=== PATIENT | female | born 1990 | race Caucasian/White ===

== ENCOUNTER 2017-10-05 12:32 | Emergency (ER) | payer MEDICAID, OTHER ==
[2017-10-05 13:34] VITALS: BP 114/53
--- NOTE | 2017-10-05 14:49 | UC ---
Back Pain HPI - HPI Summary HPI Summary: C/O back spasms since epidural with childbirth 09/19/17. Has C/S with fever and endometritis. Also c/o dental pain with upper teeth. - History of Current Complaint Chief Complaint: UCDentalProblem Stated Complaint: BACK SPASMS, DENTAL/ORAL COMPLAINT Time Seen by Provider: 10/05/17 14:43 Hx Obtained From: Patient Hx Last Menstrual Period: prior to childbirth on 09/18 ?: No Onset/Duration: Sudden Onset, Lasting Weeks - 2, Still Present Timing: Constant - in the teeth., Lasting Minutes - 3 minutes every couple of hours. Character: Throbbing - in the teeth. Gums. Aggravating Factor(s): Movement Alleviating Factor(s): Rest Associated Signs And Symptoms: Negative: Swelling, Redness, Fever - none since taking the antibiotics for the uterine infection., Weakness, Numbness, Tingling , Abdominal Pain, Bladder Incontinence, Bowel Incontinence - Risk Factors AAA Risk Factors: Negative TAD Risk Factors: Negative - Allergies/Home Medications Allergies/Adverse Reactions: Allergies Allergy/AdvReac Type Severity Reaction Status Date / Time Morphine Allergy Intermediate Hives Verified 10/05/17 13:26 Iodinated Contrast Media Allergy Mild Rash Verified 10/05/17 13:26 [IV CONTRAST DYE] Haloperidol [From Haldol] Allergy Unknown Unknown Verified 10/05/17 13:26 Reaction Details Home Medications: Home Medications Ascorbic Acid TAB* [Vitamin C TAB*] 500 mg PO DAILY 10/05/17 [History Confirmed 10/05/17] Ferrous Fumarate [Iron] 18 mg PO DAILY 10/05/17 [History Confirmed 10/05/17] Ibuprofen [Ibuprofen 200 MG] 800 mg PO Q6H PRN 10/05/17 [History Confirmed 10/05] Vitamin [Calna] 1 tab PO DAILY 10/05/17 [History Confirmed 10/05/17] PMH/Surg Hx/FS Hx/Imm Hx Respiratory History: Asthma GI/ History: Kidney Stones Neurological History: Seizures - Surgical History Surgical History: Yes Surgery Procedure, Year, and Place: dialysis when she was 16. appendectomy- states still has it. tonsillectomy - Family History Known Family History: Positive: Diabetes, Seizure Disorder - Social History Lives: With Family Alcohol Use: None Substance Use Type: None Smoking Status (MU): Former Smoker Type: Cigarettes Length of Time of Smoking/Using Tobacco: 1 year Have You Smoked in the Last Year: No When Did the Patient Quit Smoking/Using Tobacco: 2011 - Immunization History Most Recent Influenza Vaccination: February Review of Systems Constitutional: Fatigue ENT: Dental Pain, Ear Ache Musculoskeletal: Myalgia Is Patient Immunocompromised?: No All Other Systems Reviewed And Are Negative: Yes Physical Exam Triage Information Reviewed: Yes Appearance: Well-Appearing, Pain Distress - mild, Obese Vital Signs: Initial Vital Signs Temp 97.3 F 10/05/17 13:29 Pulse 68 10/05/17 13:29 Resp 20 10/05/17 13:29 BP 114/53 10/05/17 13:29 Pulse Ox 96 10/05/17 13:29 Vital Signs Reviewed: Yes Eyes: Positive: Conjunctiva Clear ENT: Positive: Pharynx normal, TMs normal Dental: Positive: Percussion Tenderness @ - multiple upper teeth, Gross Decay/ Caries @ - multiple teeth Neck exam: Normal Respiratory Exam: Normal Cardiovascular Exam: Normal Abdomen Description: Positive: No Organomegaly, Soft, Other: - c/s wound healing well.. Negative: CVA Tenderness (R), CVA Tenderness (L) Bowel Sounds: Positive: Present, Other: - Tenderness to palpation and percussion over lower thoracic, upper lumber spinous processes. No redness/ warmth or swelling. Neurological Exam: Other - Patellar reflex 2+ symmetric, achilles absent bilaterally Neurological: Positive: Other: - Pinprick sensation abnormal left side lower back around T12/ L1 Psychological Exam: Normal Skin Exam: Normal Back Pain Course/Dx - Differential Dx/Diagnosis Differential Diagnosis/HQI/PQRI: Epidural Abscess, Herniated Disc, Renal Colic Provider Diagnoses: Lumbar/ thoracic radiculitis. Dental pain Discharge - Discharge Plan Condition: Stable Disposition: HOME Prescriptions: Naproxen [Naproxen DR 500 MG TAB] 500 mg PO BID PRN #60 tab PRN Reason: Pain (Dental) Penicillin VK 500 MG TAB(NF) [Penicillin VK 500 mg Tab] 500 mg PO QID #40 tab Patient Education Materials: Toothache (ED), Penicillin V (By mouth), Naproxen (By mouth) Referrals: No Primary Care Phys,NOPCP [Primary Care Provider] - 1 Week (You should follow up with a family doctor in the next week to recheck on the nerve injury. ) Additional Instructions: I'm very concerned about the persistent back pain. Most likely a nerve got irritated by the epidural. It should resolve in 4-6 weeks. If you get worsening pain, especially with fevers YOU HAVE TO GO TO THE ER. IF YOU GET WEAKNESS/NUMBNESS/ STOOL OR URINE INCONTINENCE GO TO THE ER.
== END 2017-10-05 15:47 | disposition home or self-care (01) ==
LOC: UCCORT 12:32
DX: M54.16 Radiculopathy, lumbar region (principal); M54.14 Radiculopathy, thoracic region; K08.89 Other specified disorders of teeth and supporting structures; K02.9 Dental caries, unspecified; J45.909 Unspecified asthma, uncomplicated; R56.9 Unspecified convulsions; E66.9 Obesity, unspecified; Z87.442 Personal history of urinary calculi; Z90.89 Acquired absence of other organs; Z88.5 Allergy status to narcotic agent; Z88.8 Allergy status to other drugs, medicaments and biological substances; Z91.041 Radiographic dye allergy status; Z87.891 Personal history of nicotine dependence
CPT/HCPCS: 36415; 85652; 99212; G0463

== ENCOUNTER 2018-01-18 17:12 | Emergency (ER) | payer MEDICAID, OTHER ==
--- OUTSIDE RECORDS SUMMARY | 2018-01-18 17:52 | XMS REPORT ---
:1990 External Reference #:[id number] Author Organization [facility] Address [address], [address] [place] [address] Phone [phone] Care Team Providers Name Role Phone Ford Galaviz M.D., [facility] Care Team Information Disability Manager Unavailable Payers Type Date Identification Numbers Payment Provider Subscriber Commercial Policy Number: [id number] [facility] Sheela Ahumada PayID: [id number] [address] [place] [address] Medicaid Policy Number: [id number] Medicaid Sheela Ahumada Group Name: 1 1 [address] PayID: [id number] [place] [address] Problems Date Description Provider Status Onset: 12/23/2017 Kidney stone Karel Valdivia M.D. Active Family History Date Family Member(s) Problem(s) Comments Mother due to bone cancer () Social History Type Date Description Comments Lives With Alone ETOH Use Denies alcohol use Smoking Patient denies history of smoking Recreational Drug Use Former Drug User weed and meth Daily Caffeine Consumes on average 2 sodas per day Allergies, Adverse Reactions, Alerts Date Description Reaction Status Severity Comments 12/23/2017 Morphine Nausea and Vomiting active 12/23/2017 Contrast Dye hives active Medications Medication Date Status Form Strength Qnty SIG Indications Ordering Provider Zoloft Active Tablets 50mg 1 po qd Unknown Vital Signs Date Vital Result Comment 12/23/2017 BP Systolic 106 mmHg BP Diastolic 75 mmHg Body Temperature 96.3 F Heart Rate 75 /min Respiratory Rate 16 /min Height 64 inches 5'4" Weight 244.00 lb BMI (Body Mass Index) 41.9 kg/m2 BSA (Body Surface Area) 2.13 m2 [place] body weight in kilograms 54 Last Menstrual Period [id number] O2 % BldC Oximetry 95 % Pain Level 5 right low back Results Test Date Test Result H/L Range Note Laboratory test 04/25/2010 HCG, Quant < 1.0 mIU/mL 1 finding Drugs Of Abuse-Urine 04/25/2010 Amphetamines (Urine) NEGATIVE Screen 7 Barbiturates (Urine) NEGATIVE Benzodiazepines (Urine) NEGATIVE Cannabinoids (Urine) NEGATIVE Cocaine Metabolite (Urine) NEGATIVE Methadone (Urine) NEGATIVE Opiates (Urine) NEGATIVE Urine Cutoffs * 2 Laboratory test finding 04/25/2010 Urine Screen See Note 3 Urinalysis With Microscopic 04/25/2010 Urine Color YELLOW Yellow Urine Clarity SL CLOUDY Clear Urine Glucose - Dipstick NEGATIVE mg/dL Negative Urine Bilirubin - Dipstick NEGATIVE Negative Urine Ketone NEGATIVE mg/dL Negative Urine Specific [place] 1.020 1.010-1.030 Urine Blood SMALL High Negative Urine PH 7.0 6.5-7.5 Urine Protein - Dipstick NEGATIVE mg/dL Negative Urine Urobilinogen - Dipstick 0.2 E.U./dL 0.2-1.0 Urine Nitrite - Dipstick NEGATIVE Negative Urine Leuk Esterase SMALL High Negative Urine RBC 0-2 rbc/hpf 0-7 Urine WBC 0-2 wbc/hpf 0-7 Urine Epithelial Cells FEW NONESEEN Urine Bacteria MODERATE NONESEEN High Urine Mucus SMALL NONESEEN Urine Amorph Sediment MODERATE Negative Laboratory test finding 04/25/2010 Culture If Indicated Comment See Note 4 Urine Culture See Note 5 1 APPROXIMATE GESTATIONAL AGE AND BHCG RANGE 0-1 WEEK.......................1-50 mIU/mL 1-2 WEEKS....................40-300 mIU/mL 2-3 WEEKS.................100-1,000 mIU/mL 3-4 WEEKS.................500-6,000 mIU/mL 1-2 MONTHS............5,000-200,000 mIU/mL 2-3 MONTHS...........10,000-100,000 mIU/mL 2nd TRIMESTER..........3,000-50,000 mIU/mL 3rd TRIMESTER..........1,000-50,000 mIU/mL 2 *THE SUBMITTED URINE SPECIMEN WAS SCREENED AT THE LISTED [facility] INITIAL TEST LEVEL Amphetamines 1000 ng/mL Barbiturates 200 ng/mL Benzodiazepines 200 ng/mL Cannabinoids 50 ng/mL Cocaine Metabolite 300 ng/mL Methadone 300 ng/mL Opiates 300 ng/mL 3 04/25/10 LAB.LMT Deleted by Reflex Group UACOM 4 CULTURE TO FOLLOW 5 COLONY COUNT ! 30,000-40,000 CFU/ml Organism 1 ! ESCHERICHIA COLI QUANTITY ! FEW Organism 2 ! URETHRAL ANIKA ESCHERICHIA COLI Target Route Dose M.I.C. RX AB COST ------ ----- -------- ------ -- ------ NITROFURANTOIN <=16 S TRIMETHOPRIM/SULFAMETHOXAZOLE <=20 S AMPICILLIN >=32 R CEFAZOLIN <=4 S AMPICILLIN/SULBACTAM 16 I CIPROFLOXACIN <=0.25 S PIPERACILLIN/TAZOBACTAM <=4 S CEFTAZIDIME <=1 S CEFTRIAXONE <=1 S CEFEPIME <=1 S LEVOFLOXACIN <=0.12 S IMIPENEM <=1 S GENTAMICIN <=1 S TOBRAMYCIN <=1 S CEFOXITIN <=4 S Procedures Date CPT Code Description Status 10/09/2010 01333 Pressurized/Non-Pressurized Inhalation Treatment,Acute Completed Obstructio Encounters Type Date Location Provider CPT E/M Dx Office Visit 12/23/2017 1:15p Urology Karel Valdivia M.D. [id number] N20.0 Plan of Care Future Appointment(s):02/23/2018 1:15 pm - Karel Valdivia M.D. at [id number] - Karel Valdivia M.D.N20.0 Calculus of kidneyComments:Patient is a 27- year-old female with second episode of kidney stone. I do not think her current painis due to the kidney stone as there is no hydronephrosis or evidence of obstruction. The patient however will need a workup given her age, she is agreeable to 24-hour urine collection for further evaluation. I will see her back in 2-3 months with urine studies.
[2018-01-18 18:16] VITALS: BP 112/70
[2018-01-18] MEDS ORDERED: Phenazopyridine TAB* 100 MG PO ONE (19:26)
[2018-01-18] MEDS ORDERED: Ciprofloxacin TAB* 500 MG PO ONE (19:26)
--- NOTE | 2018-01-18 22:59 | UC ---
UC General HPI - HPI Summary HPI Summary: 27 yo female c/o freq / urg / dyuria x 1-2 days. No fever / chills. No abd pain. No back pain. Does have hx kidney stones, but doesn't feel like kidney stones. No rash. Hx uti, most recently during (delivered Aug 2017). - History of Current Complaint Chief Complaint: UCGU Stated Complaint: POSSIBLE UTI Time Seen by Provider: 01/18/18 18:49 Hx Obtained From: Patient Hx Last Menstrual Period: prior to childbirth on 09/18 Pain Intensity: 7 - Allergy/Home Medications Allergies/Adverse Reactions: Allergies Allergy/AdvReac Type Severity Reaction Status Date / Time haloperidol [From Haldol] Allergy Unknown Verified 01/18/18 18:16 Reaction Details Iodinated Contrast- Oral and Allergy Hives Verified 01/18/18 18:16 IV Dye morphine Allergy Rash Verified 01/18/18 18:16 Home Medications: Home Medications Vit37/Iron/Folic Acid [Prenata] 1 chw PO DAILY 01/18/18 [History Confirmed 01/18/18] PMH/Surg Hx/FS Hx/Imm Hx Previously Healthy: Yes - see hpi - Surgical History Surgical History: Yes Surgery Procedure, Year, and Place: dialysis when she was 16. appendectomy- states still has it. tonsillectomy - Family History Known Family History: Positive: Diabetes, Seizure Disorder - Social History Alcohol Use: Occasionally Substance Use Type: None Smoking Status (MU): Former Smoker Type: Cigarettes Length of Time of Smoking/Using Tobacco: 1 year Have You Smoked in the Last Year: No When Did the Patient Quit Smoking/Using Tobacco: 2011 - Immunization History Most Recent Influenza Vaccination: February Review of Systems Constitutional: Negative Skin: Negative Eyes: Negative ENT: Negative Respiratory: Negative Cardiovascular: Negative Gastrointestinal: Negative Genitourinary: Dysuria, Frequency, Urgency Motor: Negative Neurovascular: Negative Musculoskeletal: Negative Neurological: Negative Psychological: Negative Is Patient Immunocompromised?: No All Other Systems Reviewed And Are Negative: Yes Physical Exam Triage Information Reviewed: Yes Appearance: Well-Appearing, Well-Nourished Vital Signs: Initial Vital Signs Temp 97.5 F 01/18/18 18:12 Pulse 73 01/18/18 18:12 Resp 16 01/18/18 18:12 BP 112/70 01/18/18 18:12 Pulse Ox 99 01/18/18 18:12 Vital Signs Reviewed: Yes Eye Exam: Normal - grossly normal ENT Exam: Normal - grossly normal Neck exam: Normal Respiratory Exam: Normal Cardiovascular Exam: Normal Abdominal Exam: Normal - subj lower pelvic discomfort. no cvat no r/g Abdomen Description: Positive: Nontender Musculoskeletal Exam: Normal - moves x 4 ext's ambulates ok Neurological Exam: Normal - grossly nonfocal Psychological Exam: Normal - conversing easily and appropriately Skin Exam: Normal - no visible or reported rash Course/Dx - Course Course Of Treatment: Reviewed urine dip with pt. Reviewed s/sx and coa / tx plan, recommendation for f/u. . Questions as posed answered to the best of my ability. - Differential Dx - Multi-Symptom Provider Diagnoses: UTI Discharge - Sign-Out/Discharge Documenting (check all that apply): Discharge/Admit/Transfer - Discharge Plan Condition: Stable Disposition: HOME Prescriptions: Ciprofloxacin HCl [Cipro 500 MG TAB] 500 mg PO BID #13 tab Phenazopyridine 200 mg (NF) [Pyridium 200 MG tab *] 200 mg PO TID PRN #12 tab PRN Reason: Pain Patient Education Materials: Dehydration (ED), Urinary Tract Infection in Women (DC), Hematuria (ED) Referrals: [facility] [place] PHYSICIAN REFERRAL [Outside] No Primary Care Phys,NOPCP [Primary Care Provider] - Additional Instructions: Drink plenty of fluids (fallon water). Follow up with primary care physician, per routine, if possible in the next 2-3 weeks for urine recheck. Seek medical attention for worse or new problems. - Billing Disposition and Condition Condition: STABLE Disposition: HOME
== END 2018-01-18 19:35 | disposition home or self-care (01) ==
LOC: UCCORT 17:12
DX: N39.0 Urinary tract infection, site not specified (principal); Z32.02 Encounter for pregnancy test, result negative; Z87.891 Personal history of nicotine dependence; Z88.5 Allergy status to narcotic agent; Z88.8 Allergy status to other drugs, medicaments and biological substances; Z91.041 Radiographic dye allergy status
CPT/HCPCS: 81003; 84702; 87086; 99212; A9270-GY; G0463

== ENCOUNTER 2019-01-19 19:18 | Emergency (ER) | payer OTHER ==
[2019-01-19 20:14] VITALS: BP 120/64
--- NOTE | 2019-01-19 20:31 | ED ---
Respiratory - HPI Summary HPI Summary: 28 yr old female with the complaint of runny nose, post nasal drip, sinus pain, coughing. The patient had onset of symptoms four days ago. She has a history of asthma and bronchitis as well. No fever or chills. When the patient coughs she has discomfort in her lower throat and upper chest. No SOB. No pleuritic pain. - History of Current Complaint Chief Complaint: UCRespiratory Stated Complaint: COUGH Time Seen by Provider: 01/19/19 20:16 Pain Intensity: 0 - Allergy/Home Medications Allergies/Adverse Reactions: Allergies Allergy/AdvReac Type Severity Reaction Status Date / Time haloperidol [From Haldol] Allergy Unknown Verified 01/19/19 20:14 Reaction Details Iodinated Contrast- Oral and Allergy Hives Verified 01/19/19 20:14 IV Dye morphine Allergy Rash Verified 01/19/19 20:14 PMH/Surg Hx/FS Hx/Imm Hx Respiratory History: Reports: Hx Asthma Neurological History: Reports: Hx Seizures - Surgical History Surgery Procedure, Year, and Place: dialysis when she was 16. tonsillectomy, adenoidectomy Infectious Disease History: No Infectious Disease History: Denies: Traveled Outside the [place] in Last 30 Days - Family History Known Family History: Positive: Diabetes, Seizure Disorder - Social History Alcohol Use: None Substance Use Type: Reports: None Smoking Status (MU): Former Smoker Type: Cigarettes Length of Time of Smoking/Using Tobacco: 1 year Have You Smoked in the Last Year: No Review of Systems Constitutional: Negative Positive: Sore Throat, Nasal Discharge, Other - sinus pain Positive: Cough All Other Systems Reviewed And Are Negative: Yes Physical Exam Triage Information Reviewed: Yes Vital Signs On Initial Exam: Initial Vitals Temp Pulse Resp BP Pulse Ox 98.2 F 94 18 120/64 100 01/19/19 20:08 01/19/19 20:08 01/19/19 20:08 01/19/19 20:08 01/19/19 20:08 Vital Signs Reviewed: Yes Appearance: Positive: Well-Appearing, No Pain Distress Skin: Positive: Warm, Skin Color Reflects Adequate Perfusion Head/Face: Positive: Normal Head/Face Inspection Eyes: Positive: EOMI ENT: Positive: Pharyngeal erythema, Nasal congestion, Nasal drainage, TMs normal , Sinus tenderness Respiratory/Lung Sounds: Positive: Clear to Auscultation, Breath Sounds Present Cardiovascular: Positive: RRR. Negative: Murmur Abdomen Description: Positive: Nontender Musculoskeletal: Positive: Strength/ROM Intact Neurological: Positive: Sensory/Motor Intact, Alert, Oriented to Person Place, Time, CN Intact II-III Psychiatric: Positive: Normal Diagnostics - Vital Signs Vital Signs Temp Pulse Resp BP Pulse Ox 01/19/19 20:08 98.2 F 94 18 120/64 100 - Laboratory Lab Statement: Any lab studies that have been ordered have been reviewed, and results considered in the medical decision making process. Disposition - Course Course Of Treatment: 28 yr old with sinusitis. And bronchitis. Rx with augmentin and she already has an albuterol MDI at home. - Diagnoses Provider Diagnoses: Sinusitis, Bronchitis Discharge - Sign-Out/Discharge Documenting (check all that apply): Patient Departure All imaging exams completed and their final reports reviewed: No Studies - Discharge Plan Condition: Good Disposition: HOME Prescriptions: Amoxicillin/Clavulanate TAB* [Augmentin TAB 875*] 875 mg PO BID #20 tab Patient Education Materials: Sinusitis (ED), Acute Bronchitis (ED) Referrals: Dayana Barrientos MD [Primary Care Provider] - 4 Days - Billing Disposition and Condition Condition: GOOD Disposition: Home
[2019-01-19] MEDS ORDERED: Amoxicillin/Clavulanate TAB* 875 MG PO ONE (20:36)
== END 2019-01-19 20:39 | disposition home or self-care (01) ==
LOC: UCCORT 19:18
DX: J32.9 Chronic sinusitis, unspecified (principal); J45.909 Unspecified asthma, uncomplicated; R56.9 Unspecified convulsions; Z88.5 Allergy status to narcotic agent; Z88.8 Allergy status to other drugs, medicaments and biological substances; Z91.041 Radiographic dye allergy status; Z87.891 Personal history of nicotine dependence
CPT/HCPCS: 99212; A9270-GY; G0463

== ENCOUNTER 2019-02-06 16:45 | Emergency (ER) | payer OTHER ==
[2019-02-06 16:56] VITALS: BP 103/67
--- NOTE | 2019-02-06 17:15 | UC ---
Respiratory Complaint HPI - HPI Summary HPI Summary: C/O wheezing with coughing x 3 weeks. No better with antibiotics. 20 weeks Some sinus congestion with allergies but no fevers. - History of Current Complaint Chief Complaint: UCRespiratory Stated Complaint: COUGH Hx Obtained From: Patient Hx Last Menstrual Period: 09/23/18 ?: Yes Onset/Duration: Gradual Onset, Lasting Weeks - 3, Still Present Severity Initially: Moderate Severity Currently: Moderate Pain Intensity: 4 Character: Cough: Nonproductive Alleviating Factors: Bronchodilator Associated Signs And Symptoms: Positive: Wheezing, URI, Nasal Congestion, Sinus Discomfort. Negative: Fever, Chills Related History: Seasonal Allergies - Risk Factors Pulmonary Embolism Risk Factors: - Allergies/Home Medications Allergies/Adverse Reactions: Allergies Allergy/AdvReac Type Severity Reaction Status Date / Time haloperidol [From Haldol] Allergy Unknown Verified 02/06/19 16:56 Reaction Details Iodinated Contrast- Oral and Allergy Hives Verified 02/06/19 16:56 IV Dye morphine Allergy Rash Verified 02/06/19 16:56 Home Medications: Home Medications Albuterol HFA INHALER* [Ventolin HFA Inhaler*] 2 puff DAILY 02/06/19 [History Confirmed 02/06/19] PMH/Surg Hx/FS Hx/Imm Hx Respiratory History: Asthma - Surgical History Surgical History: Yes Surgery Procedure, Year, and Place: dialysis when she was 16. tonsillectomy, adenoidectomy - Family History Known Family History: Positive: Diabetes, Seizure Disorder - Social History Occupation: Employed Full-time Lives: With Family Alcohol Use: None Substance Use Type: None Smoking Status (MU): Former Smoker Type: Cigarettes Length of Time of Smoking/Using Tobacco: 1 year Have You Smoked in the Last Year: No When Did the Patient Quit Smoking/Using Tobacco: 2011 - Immunization History Most Recent Influenza Vaccination: February Review of Systems All Other Systems Reviewed And Are Negative: Yes ENT: Positive: Nasal Discharge, Sinus Congestion Respiratory: Positive: Shortness Of Breath, Cough Is Patient Immunocompromised?: Yes - Physical Exam Triage Information Reviewed: Yes Appearance: No Pain Distress, Ill-Appearing, Obese Vital Signs: Initial Vital Signs Temp 98.3 F 02/06/19 16:52 Pulse 89 02/06/19 16:52 Resp 20 02/06/19 16:52 BP 103/67 02/06/19 16:52 Pulse Ox 99 02/06/19 16:52 Vital Signs Reviewed: Yes Eyes: Positive: Conjunctiva Inflamed ENT: Positive: Pharynx normal, Nasal congestion, TMs normal Neck exam: Normal Respiratory: Positive: Wheezing - expiratory wheezing with coughing Cardiovascular Exam: Normal Musculoskeletal Exam: Normal Neurological Exam: Normal Psychological Exam: Normal Skin Exam: Normal Respiratory Course/Dx - Differential Dx/Diagnosis Differential Diagnosis/HQI/PQRI: Asthma, Exacerbation Of COPD, Lower Resp Infection, Sinusitis Provider Diagnosis: Mild persistent asthma with (acute) exacerbation, Allergic rhinitis Discharge - Sign-Out/Discharge Documenting (check all that apply): Patient Departure All imaging exams completed and their final reports reviewed: No Studies - Discharge Plan Condition: Stable Disposition: HOME Prescriptions: predniSONE TAB* [Deltasone 20 MG TAB*] 60 mg PO DAILY #18 tab Patient Education Materials: Bronchospasm (ED), Prednisone (By mouth) Referrals: Dayana Barrientos MD [Primary Care Provider] - Additional Instructions: NENovImmuneMED SINUS RINSE: CHECK OUT AT [email or web address] Saline nasal wash helps with mucous, allergies and congestion. It can be used up to twice a day or only as needed. Use lukewarm tap water. It does not have to be sterilized or distilled water. Do 1/3 on each side and snort out of both nostrils. Repeat the process with 1/6 of the bottle on each side with snorting in between to finish the solution in the bottle - Billing Disposition and Condition Condition: STABLE Disposition: Home
== END 2019-02-06 17:49 | disposition home or self-care (01) ==
LOC: UCCORT 16:45
DX: O99.512 Diseases of the respiratory system complicating pregnancy, second trimester (principal); J45.901 Unspecified asthma with (acute) exacerbation; Z3A.20 20 weeks gestation of pregnancy; Z88.8 Allergy status to other drugs, medicaments and biological substances; Z91.041 Radiographic dye allergy status; Z88.5 Allergy status to narcotic agent; Z79.899 Other long term (current) drug therapy; Z87.891 Personal history of nicotine dependence
CPT/HCPCS: 99212; G0463

== ENCOUNTER 2019-04-12 15:23 | Emergency (ER) | payer OTHER ==
[2019-04-12 15:49] VITALS: BP 117/67
--- NOTE | 2019-04-12 16:07 | UC ---
Rectal Pain HPI - HPI Summary HPI Summary: 29-year-old female who is approximately 29 weeks gestation. She has noted possible hemorrhoids over the past few days. She is already on a stool softener because she is taking iron pills. She is scheduled for a and 10 more weeks. - History Of Current Complaint Chief Complaint: UCGI Stated Complaint: PERSONAL (23 WKS ) Time Seen by Provider: 04/12/19 15:53 Hx Obtained From: Patient Hx Last Menstrual Period: September 2018 ?: Yes - patient states to me she is 29 weeks gestation Onset/Duration: Gradual Onset Timing: Constant Severity Initially: Mild Severity Currently: Moderate Pain Intensity: 7 Location Of Pain: Rectal Character: Burning Aggravating Factor(s): Bowel Movement, Sitting Alleviating Factor(s): Nothing Associated Signs And Symptoms: Positive: Negative - Allergies/Home Medications Allergies/Adverse Reactions: Allergies Allergy/AdvReac Type Severity Reaction Status Date / Time haloperidol [From Haldol] Allergy Unknown Verified 04/12/19 15:40 Reaction Details Iodinated Contrast- Oral and Allergy Hives Verified 04/12/19 15:40 IV Dye morphine Allergy Rash Verified 04/12/19 15:40 Home Medications: Home Medications Docusate Sodium [Colace] 100 mg PO BID 04/12/19 [History Confirmed 04/12/19] Iron Supplement 50 units PO BID 04/12/19 [History Confirmed 04/12/19] PMH/Surg Hx/FS Hx/Imm Hx Previously Healthy: Yes Respiratory History: Asthma Neurological History: Seizures Psychological History: Depression - Surgical History Surgical History: Yes Surgery Procedure, Year, and Place: dialysis when she was 16. tonsillectomy, adenoidectomy, c section 09/20/17 - Family History Known Family History: Positive: Diabetes, Seizure Disorder - Social History Alcohol Use: None Substance Use Type: None Smoking Status (MU): Former Smoker Type: Cigarettes Length of Time of Smoking/Using Tobacco: 1 year Have You Smoked in the Last Year: No When Did the Patient Quit Smoking/Using Tobacco: 2011 - Immunization History Most Recent Influenza Vaccination: February Review of Systems All Other Systems Reviewed And Are Negative: Yes Skin: Positive: Other - rectal pain over the past few days Is Patient Immunocompromised?: No Physical Exam Triage Information Reviewed: Yes Appearance: Well-Appearing, No Pain Distress, Well-Nourished Vital Signs: Initial Vital Signs Temp 98.5 F 04/12/19 15:43 Pulse 98 04/12/19 15:43 Resp 22 04/12/19 15:43 BP 117/67 04/12/19 15:43 Pulse Ox 99 04/12/19 15:43 Vital Signs Reviewed: Yes Skin: Positive: Other - Pt has one hemorrhoid present, pink in color, no erythema, tender on palpation. Rectal Pain Course/Dx - Course Course Of Treatment: Patient is to continue her stool softeners, she can apply cold compresses or ice to the area, she can try laying on her left side. She is to follow-up with her [employer] person in 1 week from now as scheduled. - Differential Dx/Diagnosis Provider Diagnosis: Hemorrhoid Discharge - Sign-Out/Discharge Documenting (check all that apply): Patient Departure All imaging exams completed and their final reports reviewed: No Studies - Discharge Plan Condition: Fair Disposition: HOME Prescriptions: Docusate CAP* [Colace Cap*] 100 mg PO BID PRN 7 Days #14 cap PRN Reason: Pain Patient Education Materials: Hemorrhoids (DC) Referrals: Dayana Barrientos MD [Primary Care Provider] - Additional Instructions: Increase fluids, take the stool softener twice a day up to 7 days, follow up with your doctor in 3-4 days if no improvement. - Billing Disposition and Condition Condition: FAIR Disposition: Home
== END 2019-04-12 16:09 | disposition home or self-care (01) ==
LOC: UCCORT 15:23
DX: O22.43 Hemorrhoids in pregnancy, third trimester (principal); Z3A.29 29 weeks gestation of pregnancy; Z87.891 Personal history of nicotine dependence
CPT/HCPCS: 99212; G0463

== ENCOUNTER 2019-05-26 10:31 | Emergency (ER) | payer OTHER ==
[2019-05-26 11:03] VITALS: BP 123/72
--- NOTE | 2019-05-26 11:17 | UC ---
Throat Pain/Nasal Issac HPI - HPI Summary HPI Summary: nasal congestion / cough runny nose with congestion no fever, + chills, cough is dry , no sputum no chest pain , no sob + wheezing - History of Current Complaint Chief Complaint: UCGeneralIllness Stated Complaint: COUGH,SINUS COMPLAINT (35 WKS PREG) Time Seen by Provider: 05/26/19 11:00 Hx Obtained From: Patient Hx Last Menstrual Period: September 2018 ?: Yes Onset/Duration: Gradual Onset, Lasting Days - 2, Still Present Severity: Moderate Pain Intensity: 0 Associated Signs & Symptoms: Positive: Wheezing, Nasal Discharge. Negative: Dysphagia, Drooling, Hoarseness, Sinus Discomfort, Fever, Vomiting, Rash - Allergies/Home Medications Allergies/Adverse Reactions: Allergies Allergy/AdvReac Type Severity Reaction Status Date / Time haloperidol [From Haldol] Allergy Unknown Verified 05/26/19 11:03 Reaction Details Iodinated Contrast Media Allergy Hives Verified 05/26/19 11:03 [Iodinated Contrast- Oral and IV Dye] morphine Allergy Rash Verified 05/26/19 11:03 PMH/Surg Hx/FS Hx/Imm Hx Previously Healthy: Yes Respiratory History: Asthma GI/ History: Kidney Stones Neurological History: Seizures Psychological History: Anxiety, Depression - Surgical History Surgical History: Yes Surgery Procedure, Year, and Place: dialysis when she was 16. tonsillectomy, adenoidectomy, c section 09/20/17 - Family History Known Family History: Positive: Diabetes, Seizure Disorder - Social History Alcohol Use: None Substance Use Type: None Smoking Status (MU): Former Smoker Type: Cigarettes Length of Time of Smoking/Using Tobacco: 1 year Have You Smoked in the Last Year: No When Did the Patient Quit Smoking/Using Tobacco: 2011 - Immunization History Most Recent Influenza Vaccination: February Review of Systems All Other Systems Reviewed And Are Negative: Yes Constitutional: Positive: Negative Skin: Positive: Negative Eyes: Positive: Negative ENT: Positive: Nasal Discharge Respiratory: Positive: Cough Is Patient Immunocompromised?: No Physical Exam Triage Information Reviewed: Yes Appearance: Well-Appearing, No Pain Distress, Obese Vital Signs: Initial Vital Signs Temp 97 F 05/26/19 10:59 Pulse 98 05/26/19 10:59 Resp 20 05/26/19 10:59 BP 123/72 05/26/19 10:59 Pulse Ox 99 05/26/19 10:59 Vital Signs Reviewed: Yes Eye Exam: Normal Eyes: Positive: Conjunctiva Clear ENT: Positive: Normal ENT inspection, Hearing grossly normal, Pharynx normal, Nasal congestion, TMs normal Neck: Positive: Supple, Nontender, No Lymphadenopathy Respiratory: Positive: Chest non-tender, Lungs clear, Normal breath sounds Cardiovascular: Positive: RRR, No Murmur, Pulses Normal Skin Exam: Normal Throat Pain/Nasal Course/Dx - Differential Dx/Diagnosis Provider Diagnosis: URI (upper respiratory infection) Discharge ED - Sign-Out/Discharge Documenting (check all that apply): Patient Departure All imaging exams completed and their final reports reviewed: No Studies - Discharge Plan Condition: Stable Disposition: HOME Patient Education Materials: Upper Respiratory Infection (DC) Referrals: Dayana Barrientos MD [Primary Care Provider] - If Needed - Billing Disposition and Condition Condition: STABLE Disposition: Home
== END 2019-05-26 11:20 | disposition home or self-care (01) ==
LOC: UCCORT 10:31
DX: O99.513 Diseases of the respiratory system complicating pregnancy, third trimester (principal); J06.9 Acute upper respiratory infection, unspecified; Z3A.35 35 weeks gestation of pregnancy; Z87.891 Personal history of nicotine dependence
CPT/HCPCS: 99211; G0463

== ENCOUNTER 2019-05-29 18:46 | Emergency (ER) | payer OTHER ==
[2019-05-29 19:16] VITALS: BP 133/95
[2019-05-29] MEDS ORDERED: predniSONE TAB* 20 MG PO ONE (19:22)
[2019-05-29] MEDS ORDERED: Amoxicillin PO (*) 500 MG CAP PO ONE (19:22)
[2019-05-29] MEDS ORDERED: Albuterol/Ipratropium NEB.SOL* Albuterol 2.5 MG/Ipratropium 0.5 MG 3 ML INH ONE (19:22)
--- NOTE | 2019-05-29 19:28 | UC ---
Respiratory Complaint HPI - HPI Summary HPI Summary: Started with sinus pain with sweats/ chills starting yesterday. Started coughing last night. Asthma is worse with wheezing. Needing to use albuterol. - History of Current Complaint Chief Complaint: UCGeneralIllness Stated Complaint: SORE THROAT,COUGH Hx Obtained From: Patient Hx Last Menstrual Period: September 2018 ?: Yes Onset/Duration: Sudden Onset, Lasting Days - 2, Worse Since - last night Timing: Constant Severity Initially: Mild Severity Currently: Moderate Pain Intensity: 6 Character: Cough: Nonproductive Aggravating Factors: Deep Breaths, Recumbent Position Alleviating Factors: Bronchodilator Associated Signs And Symptoms: Positive: Wheezing, Nasal Congestion, Sinus Discomfort Related History: Seasonal Allergies - Risk Factors Pulmonary Embolism Risk Factors: - Allergies/Home Medications Allergies/Adverse Reactions: Allergies Allergy/AdvReac Type Severity Reaction Status Date / Time haloperidol [From Haldol] Allergy Unknown Verified 05/29/19 19:10 Reaction Details Iodinated Contrast Media Allergy Hives Verified 05/29/19 19:10 [Iodinated Contrast- Oral and IV Dye] morphine Allergy Rash Verified 05/29/19 19:10 Home Medications: Home Medications Fluticasone HFA 110 mcg(NF) [Flovent HFA 110 mcg(NF)] 2 puff INH BID 05/29/19 [ History Confirmed 05/29/19] PMH/Surg Hx/FS Hx/Imm Hx Respiratory History: Asthma - Surgical History Surgical History: Yes Surgery Procedure, Year, and Place: dialysis when she was 16. tonsillectomy, adenoidectomy, c section 09/20/17. C-sectt--2017 - Family History Known Family History: Positive: Diabetes, Seizure Disorder - Social History Occupation: Unemployed Lives: With Family Alcohol Use: None Substance Use Type: None Smoking Status (MU): Former Smoker Type: Cigarettes Length of Time of Smoking/Using Tobacco: 1 year Have You Smoked in the Last Year: No When Did the Patient Quit Smoking/Using Tobacco: 2011 - Immunization History Most Recent Influenza Vaccination: February Review of Systems All Other Systems Reviewed And Are Negative: Yes Constitutional: Positive: Chills, Fatigue ENT: Positive: Sore Throat, Sinus Congestion, Sinus Pain/Tenderness Respiratory: Positive: Shortness Of Breath, Cough Physical Exam Triage Information Reviewed: Yes Appearance: No Pain Distress, Ill-Appearing, Obese Vital Signs: Initial Vital Signs Temp 96.9 F 05/29/19 19:12 Pulse 103 05/29/19 19:12 Resp 24 05/29/19 19:12 BP 133/95 05/29/19 19:12 Pulse Ox 98 05/29/19 19:12 Vital Signs Reviewed: Yes Eyes: Positive: Conjunctiva Clear ENT: Positive: Pharynx normal, Nasal congestion, TMs normal Neck exam: Normal Respiratory: Positive: Wheezing - expiratory wheeze with coughing. Cardiovascular Exam: Normal Musculoskeletal Exam: Normal Neurological Exam: Normal Psychological Exam: Normal Skin Exam: Normal Respiratory Course/Dx - Differential Dx/Diagnosis Differential Diagnosis/HQI/PQRI: Asthma, Lower Resp Infection, Sinusitis Provider Diagnosis: Acute bacterial sinusitis, Asthma with acute exacerbation Discharge ED - Sign-Out/Discharge Documenting (check all that apply): Patient Departure All imaging exams completed and their final reports reviewed: No Studies - Discharge Plan Condition: Stable Disposition: HOME Prescriptions: Amoxicillin PO (*) [Amoxicillin 500 MG CAP*] 500 mg PO TID #30 cap predniSONE TAB* [Deltasone 20 MG TAB*] 60 mg PO DAILY #18 tab Patient Education Materials: Sinusitis (ED), Amoxicillin (By mouth), Prednisone (By mouth) Referrals: Dayana Barrientos MD [Primary Care Provider] - Additional Instructions: NASAL SPRAYS AND DROPS: Afrin in the PUMP/ MIST bottle (Get generic 12 hours nasal decongestant spray). Tilt your head down and look at the floor while doing a strong sniff with the spray. Decongestant nasal sprays and drops often give dramatic relief from congestion. They are often recommended for patients with sinus infection to assist with sinus drainage. Persons with high blood pressure should consult the doctor before using these nasal sprays. Afrin and Uriel-Synephrine are common [id number] preparations. They should not be used for more than five days, as "rebound" congestion can occur - - the congestion flares as the drug wears off. A way of dealing with this rebound congestion problem is to medicate only one nostril each time, allowing the other nostril to recover from the medicine' s effects. When you no longer need the drug during the day, spray only one nostril each night. This helps you sleep well without severe rebound congestion. Call the doctor if you develop severe headache, palpitations, or chest pain. - Billing Disposition and Condition Condition: STABLE Disposition: Home
== END 2019-05-29 19:46 | disposition home or self-care (01) ==
LOC: UCCORT 18:46
DX: J01.90 Acute sinusitis, unspecified (principal); B96.89 Other specified bacterial agents as the cause of diseases classified elsewhere; J45.901 Unspecified asthma with (acute) exacerbation; Z87.891 Personal history of nicotine dependence
CPT/HCPCS: 99213; A9270-GY; G0463; J7512

== ENCOUNTER 2019-07-17 12:40 | Emergency (ER) | payer OTHER | END 2019-07-17 13:27 | disposition left against medical advice (07) | LOC: UCCORT 12:40 | DX: Z53.21 Procedure and treatment not carried out due to patient leaving prior to being seen by health care provider (principal) ==

== ENCOUNTER 2019-09-20 20:55 | Emergency (ER) | payer OTHER ==
[2019-09-20 21:08] VITALS: BP 120/89
--- NOTE | 2019-09-20 21:14 | ED ---
Lower Extremity - HPI Summary HPI Summary: 29 yr old female with the complaint of left foot pain. Onset of pain yesterday. She dropped a box of frozen food on her foot at work. She has bruising and some pain. No other complaints. She has pain worse with walking. No other complaints. - History of Current Complaint Chief Complaint: UCLowerExtremity Stated Complaint: LEFT FOOT INJURY-WC Time Seen by Provider: 09/20/19 20:56 Hx Last Menstrual Period: nexplanon Pain Intensity: 8 - Allergies/Home Medications Allergies/Adverse Reactions: Allergies Allergy/AdvReac Type Severity Reaction Status Date / Time haloperidol [From Haldol] Allergy Unknown Verified 09/20/19 21:03 Reaction Details Iodinated Contrast Media Allergy Hives Verified 09/20/19 21:03 [Iodinated Contrast- Oral and IV Dye] morphine Allergy Rash Verified 09/20/19 21:03 Home Medications: Home Medications NK [No Home Medications Reported] 09/20/19 [History Confirmed 09/20/19] PMH/Surg Hx/FS Hx/Imm Hx Respiratory History: Reports: Hx Asthma Neurological History: Reports: Hx Seizures - Surgical History Surgery Procedure, Year, and Place: dialysis when she was 16. tonsillectomy, adenoidectomy, c section 09/20/17. C-sect--2017 Infectious Disease History: No Infectious Disease History: Denies: Traveled Outside the [place] in Last 30 Days - Family History Known Family History: Positive: Diabetes, Seizure Disorder - Social History Occupation: Employed Full-time Alcohol Use: None Substance Use Type: Reports: None Smoking Status (MU): Former Smoker Type: Cigarettes Length of Time of Smoking/Using Tobacco: 1 year Have You Smoked in the Last Year: No Review of Systems Positive: Other - left foot pain. Positive: Bruising - left foot All Other Systems Reviewed And Are Negative: Yes Physical Exam Triage Information Reviewed: Yes Vital Signs On Initial Exam: Initial Vitals Temp Pulse Resp BP Pulse Ox 98 F 89 16 120/89 98 09/20/19 21:04 09/20/19 21:04 09/20/19 21:04 09/20/19 21:04 09/20/19 21:04 Vital Signs Reviewed: Yes Appearance: Positive: Well-Appearing, No Pain Distress Skin: Positive: Other - bruise dorsum of the left foot Head/Face: Positive: Normal Head/Face Inspection Eyes: Positive: EOMI ENT: Positive: Normal ENT inspection Neck: Positive: Nontender Respiratory/Lung Sounds: Positive: Clear to Auscultation, Breath Sounds Present Cardiovascular: Positive: Pulses are Symmetrical in both Upper and Lower Extremities Abdomen Description: Negative: Distended Musculoskeletal: Positive: Other - mild tender over the dorsum of the left foot with STS and bruising. No gross deformity. Neurological: Positive: Sensory/Motor Intact, Alert, Oriented to Person Place, Time, CN Intact II-III, Speech Normal Psychiatric: Positive: Normal Diagnostics - Vital Signs Vital Signs Temp Pulse Resp BP Pulse Ox 09/20/19 21:04 98 F 89 16 120/89 98 - Laboratory Lab Statement: Any lab studies that have been ordered have been reviewed, and results considered in the medical decision making process. - Radiology left foot Radiology Interpretation Completed By: ED Physician - nad Lower Extremity Course/Dx - Course Course Of Treatment: 29 yr old with contusion to the foot. Plan DC home. FU with ortho. - Diagnoses Provider Diagnoses: Contusion of foot, left Discharge ED - Sign-Out/Discharge Documenting (check all that apply): Patient Departure All imaging exams completed and their final reports reviewed: No - Discharge Plan Condition: Good Disposition: HOME Patient Education Materials: Foot Contusion (ED) Referrals: Dayana Barrientos MD [Primary Care Provider] - 2 Days Jorge Ferguson MD [Medical Doctor] - 2 Days - Billing Disposition and Condition Condition: GOOD Disposition: Home
--- NOTE | 2019-09-21 09:15 | UC ---
- Progress Note Progress Note: No fracture. No change from initial management - EKG/XRAY/CT Xray Comments: Left foot - no fracture Course/Dx - Diagnoses Provider Diagnoses: Contusion of foot, left Discharge ED - Sign-Out/Discharge Documenting (check all that apply): Post-Discharge Follow Up All imaging exams completed and their final reports reviewed: Yes - Discharge Plan Condition: Good Disposition: HOME Patient Education Materials: Foot Contusion (ED) Referrals: Jorge Ferguson MD [Medical Doctor] - 2 Days Dayana Barrientos MD [Primary Care Provider] - 2 Days - Billing Disposition and Condition Condition: GOOD Disposition: Home
== END 2019-09-20 21:43 | disposition home or self-care (01) ==
LOC: UCCORT 20:55
DX: S90.32XA Contusion of left foot, initial encounter (principal); J45.909 Unspecified asthma, uncomplicated; Z88.8 Allergy status to other drugs, medicaments and biological substances; Z91.041 Radiographic dye allergy status; Z88.5 Allergy status to narcotic agent; Z87.891 Personal history of nicotine dependence; W20.8XXA Other cause of strike by thrown, projected or falling object, initial encounter; Y92.9 Unspecified place or not applicable
CPT/HCPCS: 99211; G0463

== ENCOUNTER 2019-12-04 10:43 | Emergency (ER) | payer OTHER ==
[2019-12-04 11:07] VITALS: BP 118/83
--- NOTE | 2019-12-04 11:13 | UC ---
General HPI - HPI Summary HPI Summary: 1) Nasal congestion, rhinorrhea, PND, mostly nonproductive cough, one episode of "bloody" sputum, "it feels like my chest is on fire", myalgias, and decreased energy levels for two days; worsened last night with difficulty sleeping due to cough. denies known exposures to covid or travel. Denies cough, fever, fatigue, sob. 2) Middle low back "throbbing ... constant" pain since "spinal tap" for c- section June 2019. Temporary "not for long" improvement with Tylenol. When asked, patient denies seeking medical attention for this prior to today. - History of Current Complaint Chief Complaint: UCRespiratory Stated Complaint: COUGH, SINUS COMPLAINT, BACK PAIN Time Seen by Provider: 12/04/19 10:56 Hx Obtained From: Patient Hx Last Menstrual Period: Nexplanon Pain Intensity: 7 - Allergy/Home Medications Allergies/Adverse Reactions: Allergies Allergy/AdvReac Type Severity Reaction Status Date / Time haloperidol [From Haldol] Allergy Unknown Verified 12/04/19 10:59 Reaction Details Iodinated Contrast Media Allergy Hives Verified 12/04/19 10:59 [Iodinated Contrast- Oral and IV Dye] morphine Allergy Rash Verified 12/04/19 10:59 Home Medications: Home Medications Albuterol HFA INHALER* [Ventolin HFA Inhaler*] 1 - 2 puff INH Q4H PRN 12/04/19 [ History Confirmed 12/04/19] Aspirin/Acetaminophen/Caffeine [Excedrin Extra Strength Caplet] 1 tab PO Q6H PRN 12/04/19 [History Confirmed 12/04/19] Etonogestrel [Nexplanon] 68 mg IMPLANT ONCE 12/04/19 [History Confirmed 12/04/19 ] Fluticasone HFA 220 mcg(NF) [Flovent Hfa 220 Mcg(NF)] 2 puff INH BID 12/04/19 [ History Confirmed 12/04/19] LevoCETirizine TAB (NF) [Xyzal TAB (NF)] 5 mg PO DAILY 12/04/19 [History Confirmed 12/04/19] Naproxen Sodium [Naproxen 220 mg] 220 mg PO Q6HR #20 tablet 12/04/19 [Rx] Sertraline* [Zoloft*] 100 mg PO DAILY 12/04/19 [History Confirmed 12/04/19] predniSONE [Prednisone 20 MG TAB] 20 mg PO DAILY 5 Days #5 tablet 12/04/19 [Rx] PMH/Surg Hx/FS Hx/Imm Hx Previously Healthy: Yes - Surgical History Surgical History: Yes Surgery Procedure, Year, and Place: C-Sections, 2019 2016; T&A; dialysis when she was 16 - Family History Known Family History: Positive: Diabetes, Seizure Disorder - Social History Alcohol Use: None Substance Use Type: None Smoking Status (MU): Former Smoker Type: Cigarettes Length of Time of Smoking/Using Tobacco: 1 year Have You Smoked in the Last Year: No When Did the Patient Quit Smoking/Using Tobacco: ~2013 - Immunization History Most Recent Influenza Vaccination: February Review of Systems All Other Systems Reviewed And Are Negative: Yes Constitutional: Negative: Fever Skin: Negative: Rash ENT: Positive: Ear Ache, Sinus Congestion. Negative: Dental Pain, Sore Throat, Sinus Pain/Tenderness Respiratory: Positive: Cough, Other - denies sob. Negative: Shortness Of Breath Gastrointestinal: Negative: Vomiting, Diarrhea Neurological/Mental Status: Negative: Headache Physical Exam Triage Information Reviewed: Yes Appearance: Well-Appearing Vital Signs: Initial Vital Signs Temp 97.5 F 12/04/19 10:53 Pulse 86 12/04/19 10:53 Resp 18 12/04/19 10:53 BP 118/83 12/04/19 10:53 Pulse Ox 98 12/04/19 10:53 Vital Signs Reviewed: Yes Eyes: Positive: Conjunctiva Clear ENT: Positive: Pharynx normal, TMs normal, Uvula midline Neck: Positive: Supple, Nontender, No Lymphadenopathy Respiratory Exam: Normal Cardiovascular Exam: Normal Neurological: Positive: Alert Skin: Negative: Rashes Course/Dx - Course Course Of Treatment: URi symptoms in a pt. w low risk for covid. lungs are clear, vitals good. symptomatic tx. vitals good. For her back issue she will discuss w/ her primary care provider as I do not see anything acute occurring. No acute neuro issues related to back pain. - Differential Dx - Multi-Symptom Differential Diagnoses: Urinary Tract Infection, Other - Diagnoses Provider Diagnosis: Back pain Discharge ED - Sign-Out/Discharge Documenting (check all that apply): Patient Departure All imaging exams completed and their final reports reviewed: No Studies - Discharge Plan Condition: Good Disposition: HOME Prescriptions: Naproxen Sodium [Naproxen 220 mg] 220 mg PO Q6HR #20 tablet predniSONE [Prednisone 20 MG TAB] 20 mg PO DAILY 5 Days #5 tablet Patient Education Materials: Bronchospasm (ED) Forms: *Work Release Referrals: Dayana Barrientos MD [Primary Care Provider] - Additional Instructions: Please discuss your back issues with your primary care provider. - Billing Disposition and Condition Condition: GOOD Disposition: Home
== END 2019-12-04 11:31 | disposition home or self-care (01) ==
LOC: UCCORT 10:43
DX: M54.9 Dorsalgia, unspecified (principal); R09.81 Nasal congestion; R05 Cough; Z87.891 Personal history of nicotine dependence; Z79.82 Long term (current) use of aspirin; Z88.5 Allergy status to narcotic agent; Z91.041 Radiographic dye allergy status; Z88.8 Allergy status to other drugs, medicaments and biological substances
CPT/HCPCS: 99212; G0463